=== PATIENT | female | born 1940 | race Caucasian/White ===

== ENCOUNTER 2023-06-05 01:43 | Emergency (ER) | payer OTHER, SELFPAY ==
[2023-06-05 01:53] VITALS: BP 180/79
[2023-06-05 04:08] LABS: % Basophils 0.4 % (0-2); % Eosinophils 4.6 % (0-6); % Immature Granulocytes 0.4 % (0-0.5); % Lymphocytes 25.1 % (20.5-51.1); % Monocytes 7.2 % (1.7-9.3); % Neutrophils 62.3 % (42.2-75.2); Absolute Eosinophils 0.3 10^3/uL (0-0.7); Absolute Lymphocytes 1.8 10^3/uL (1.2-3.4); Absolute Monocytes 0.5 10^3/uL (0.1-0.6); Absolute Neutrophils 4.5 10^3/uL (1.4-6.5); Hematocrit 37.6 % (37.0-47.0); Hemoglobin 12.7 g/dL (12.0-16.0); Mean Corp Hgb Conc. 33.8 g/dL (33.0-37.0); Mean Corpuscular Volume 88.9 fL (81.0-99.0); Mean Platelet Volume 10.1 fL (7.4-10.4); Nucleated Red Blood Cells % 0 %; Platelet Count 265 10^3/uL (130-400); Red Blood Cell Count 4.23 10^6/uL (4.20-5.40); Red Cell Dist. Width 13.3 % (11.5-14.5); White Blood Cell Count 7.2 10^3/uL (4.8-10.8)
[2023-06-05 04:22] LABS: ALT (SGPT) 24 U/L (0-35); AST (SGOT) 21 U/L (14-36); Alkaline Phosphatase 43 U/L (38-126); Blood Urea Nitrogen 22 mg/dl (7-17); Calcium 9.4 mg/dl (8.4-10.2); Carbon Dioxide 27 mmol/L (22-30); Chloride 103 mmol/L (98-107); Glucose 97 mg/dl (70-99); Potassium 4.5 mmol/L (3.5-5.1); Sodium 136 mmol/L (135-145); Total Bilirubin 0.7 mg/dl (0.2-1.3); Total Protein 6.6 g/dl (6.3-8.2); eGFR > 60.00
[2023-06-05 04:33] LABS: Troponin I < 0.012 ng/ml
[2023-06-05 04:54] VITALS: BMI 29.0
[2023-06-05 05:00] VITALS: BP 125/61
--- NOTE | 2023-06-05 05:39 | ED.GENMED ---
History of Present Illness
General
Chief Complaint: Blood Pressure Problem
Source: patient and family
Exam Limitations: none
Time Seen by Provider: 06/05/23 05:03
Nursing documentation reviewed up to this point in time: agreed with
Travel History
Have you had any contact with someone who has COVID-19?: No
Do you have any symptoms of coronavirus? Fever > 100 degrees, chills, cough, shortness of breath, sore throat, loss of taste or smell, muscle aches, or headache?: No
History of Present Illness
History of Present Illness:
This a pleasant 82-year-old female that presents with hypertension. She states that she was watching television tonight and felt weak. She took her blood pressure and it was 200 over palp. She does see Dr. Salazar, [facility] at [place].
She has been on metoprolol but was started on Norvasc 5 mg on Monday. She has been taking it regularly. She denies chest pain or shortness of breath. She came to the emergency department because of this weakness. Upon arrival, her blood
pressure had dropped slightly but her symptoms have improved greatly. Throughout the time in the waiting room her blood pressure returned to normal and patient stated her symptoms had resolved completely. Patient reports no chest pain at all
during her ER stay. Denies any other symptoms.
Past History
Past History
ED Past Medical History: Arrthythmia (AF) and Other (IBS)
ED Past Surgical History: Cholecystectomy, Orthopedic (Right knee surgery, Right shoulder ) and Other (hernia repair X2, cataracts, Bilateral cataracts)
Social History
Tobacco: Non-smoker
Alcohol: Occasional
Personal:
Living: with family
Phy Exam
General Physical Exam
General Presentation: well appearing and no apparent distress
General Skin: warm and dry
General Habitus: normal
General Mental: alert
General Hydration: appears well hydrated
ENT Exam
ENT Exam: EOMI, pharynx normal, neck supple and normocephalic
Eye Exam
Eye Exam: PERRL and conjunctiva normal
Cardiovascular Exam
Cardiovascular Exam: regular rate/rhythm, no edema, no murmur and normal peripheral pulses
Pulmonary Exam
Pulmonary Exam: lungs clear, no respiratory distress, no rales, no crackles, no rhonchi, no stridor, no wheezing and no cough
Gastrointestinal Exam
Gastrointestinal Exam: normal bowel sounds, non tender, soft, no organomegaly, no pulsatile mass and non distended
Neurological Exam
Neurological Exam: alert, oriented x3, no motor deficits and speech normal
Musculoskeletal Exam
Musculoskeletal Exam: full ROM and no edema
Skin Exam
Skin Exam: normal color, warm/dry, no rash and no petechia
Psychiatric Exam
Psychiatric Exam: normal mood/affect
Course
Orders/Labs/Results
Orders:
Orders
06/05/23 03:51
IV Insert/Care/Rem.- Treatment PRN
O2 Therapy [RESP] Urgent
Titrate/Wean O2 to maintain O2 sat greater than (%): 90
Special Instructions: Maintain sats >/=90%
Pulse Ox/spot Check [RESP] Urgent
Quantity: 1
Special Instructions: ON ROOM AIR
06/05/23 04:03
Complete Blood Count/With Diff Urgent
Comprehensive Metabolic Panel Urgent
Troponin I Urgent
06/05/23 05:39
Electrocardiogram (*1) Urgent
Reason for Study: Hypertension, Benign
EKG- Treatment ONCE
Abnormal Lab Results
06/05/23
04:03
BUN 22 H mg/dl
(09-19)
06/05/23 04:03
06/05/23 04:03
Vital Signs
Initial and Last Documented VS:
Initial Vital Signs
Temp Pulse Resp BP Pulse Ox
97.8 F 60 16 180/79 100
06/05/23 01:53 06/05/23 01:53 06/05/23 01:53 06/05/23 01:53 06/05/23 01:53
Last Documented Vital Signs
Temp Pulse Resp BP Pulse Ox
97.8 F 52 16 121/60 98
06/05/23 01:53 06/05/23 05:00 06/05/23 01:53 06/05/23 06:28 06/05/23 06:30
*Critical Care Note
Total Time (30-74mins, 75-104mins- exclusive of procedures): Not Applicable
Update Note
Update Note:
EKG shows sinus bradycardia rate of 50 collectibles, normal axis. No evidence of acute ischemia present. There is a normal EKG with the exception of rate. When compared with previous EKG dated February 19, 2022, current sinus bradycardia replaced
A-fib.
ED Attending Note
-
Portions of this chart may have been created with voice recognition software.� Occasional wrong word or��sound alike� substitutions may have occurred due to the inherent limitations of voice recognition software.
Discharge Plan
Departure
Patient Disposition: Home (Routine Discharge)
Date of Disposition: 06/05/23
Time of Disposition: 06:11
Patient with high blood pressure during this ER visit?: Yes
Condition: Good
Discharge Problem:
Hypertension
Instructions: High Blood Pressure (DC), BLOOD PRESSURE
Prescriptions:
No Action
flecainide 50 MG tablet
50 mg PO BID
colestipol [Colestid] 1 GM tablet
1 g PO DAILY
cholecalciferol (vitamin D3) 1,000 UNITS tablet
1,000 units PO DAILY
levothyroxine 25 mcg tablet
25 mcg PO DAILY AT 0700
Prolia 60 mg/mL Syringe
60 mg SC [id number]
Eliquis 5 mg tablet
5 mg PO BID
metoprolol succinate [Toprol XL] 25 mg tablet extended release 24 hr
75 mg PO DAILY Qty: 90 0RF
Referrals:
Smiley Segundo, DO [Family Provider] -
Interventions
Interventions:
*Risk Screen - Suicide Last Done: 06/05/23 01:53
*General Assessment Last Done: 06/05/23 01:53
*Neglect/Abuse Screening Last Done: 06/05/23 01:53
ED- Fall Risk Assessment Last Done: 06/05/23 01:53
*ED COVID-19 Vaccine History Last Done: 06/05/23 01:53
*Nursing Disposition Last Done: 06/05/23 06:56
ED- Cardiac Assessment Last Done: 06/05/23 04:54
ED- Neurological Assessment Last Done: 06/05/23 04:54
ED- Pulmonary Assessment Last Done: 06/05/23 04:54
Discharge Date and Time
Discharge Date/Time: 06/05/23 06:57
Print Language: SETSWANA
[2023-06-05 06:28] VITALS: BP 121/60
== END 2023-06-05 06:57 | disposition home or self-care (01) ==
LOC: EMR 01:43
PROVIDERS: EMERGENCY PHYSICIAN Student in an Organized Health Care Education/Training Program; FAMILY PHYSICIAN Family Medicine
DX: I10 Essential (primary) hypertension (principal)
CPT/HCPCS: 99284; 80053; 84484; 85025; 93005

== ENCOUNTER 2023-11-10 14:23 | Emergency (ER) | payer OTHER, SELFPAY ==
[2023-11-10 14:27] VITALS: BP 167/98
--- NOTE | 2023-11-10 14:49 | ED.GENMED ---
History of Present Illness
General
Chief Complaint: Skin Problem
Source: patient
Exam Limitations: none
Time Seen by Provider: 11/10/23 14:48
Nursing documentation reviewed up to this point in time: agreed with
History of Present Illness
History of Present Illness:
82-year-old female with past medical history of A-fib on Eliquis, hypothyroidism, IBD presenting emergency department with concerns of a bee sting. Patient states that yesterday she was outside when she was stung by a bee. Patient now reports
swelling around the area as well as blister formation. Patient is concerned she may have an infection. Patient denies any tongue or lip swelling, any trouble breathing. Patient denies any chest pain. Patient has been applying topical Benadryl
ointment as well as taking Benadryl capsules. She reports mild relief with this. The wound is also itchy. She is able to walk without any difficulties.
Past History
Past History
ED Past Medical History: Arrthythmia (AF) and Other (IBS)
ED Past Surgical History: Cholecystectomy, Orthopedic (Right knee surgery, Right shoulder ) and Other (hernia repair X2, cataracts, Bilateral cataracts)
Social History
Tobacco: Non-smoker
Alcohol: Occasional
Personal:
Living: with family
Review of Systems
Review of Systems
All Other Systems: ROS reviewed and negative except as documented in HPI and ROS
Phy Exam
Physical Exam
Physical Exam:
General: Patient is well appearing and in no acute distress; non-toxic
Skin: Warm and dry, there is mild erythema and warmth to top of the right foot with overlying bullae
Head: Normocephalic, atraumatic
Eyes: Sclera non-icteric. EOMs intact. PERRLA.
Cardiac: Regular rate
Peripheral Vascular: Mild soft tissue swelling overlying the right
Pulm: Normal respiratory effort
Neuro: CN II-XII intact, no focal neurologic deficits.
Psychiatric: Appropriate mood and affect.
Course
Vital Signs
Initial and Last Documented VS:
Initial Vital Signs
Temp Pulse Resp BP Pulse Ox
97.3 F 76 16 167/98 98
11/10/23 14:27 11/10/23 14:27 11/10/23 14:27 11/10/23 14:27 11/10/23 14:27
Last Documented Vital Signs
Temp Pulse Resp BP Pulse Ox
97.3 F 76 16 167/98 98
11/10/23 14:27 11/10/23 14:27 11/10/23 14:27 11/10/23 14:27 11/10/23 14:27
MDM/Problems Addressed
Differential Diagnosis Includes:
Differentials include bee sting, contact dermatitis, cellulitis, erysipelas, burn
MDM/Problems Addressed:
Bee stin-year-old female with past medical history of A-fib on Eliquis, IV is, hypothyroidism presenting to emergency department today with concerns of a bee sting. Patient reports that she tends to get exaggerated allergic reactions when she
gets bug bites or stings. Patient states that she started to have swelling swelling and redness on her foot where she got stung. Patient has applied topical Benadryl cream and taking Benadryl capsules without relief. Patient has a large bullae on
her right foot on the top. This was lanced and allowed to drain, skin overlying was kept intact and dressed for biologic dressing. I recommended patient try at home hydrocortisone cream to help with this reaction. Patient concerned about
infection. Do not suspect bacterial infection at this time however we have written his option for antibiotic for patient to take should the erythema extend up the leg and should her symptoms acutely worsen. Patient stable for discharge
Chronic conditions affecting care:
n/a
Acute Exacerbation and/or Progression of Chronic Illness:
n/a
*Critical Care Note
Total Time (30-74mins, 75-104mins- exclusive of procedures): Not Applicable
ED Attending Note
-
Portions of this chart may have been created with voice recognition software.� Occasional wrong word or��sound alike� substitutions may have occurred due to the inherent limitations of voice recognition software.
Discharge Plan
Departure
Patient Disposition: Home (Routine Discharge)
Date of Disposition: 11/10/23
Time of Disposition: 15:44
Patient with high blood pressure during this ER visit?: Yes
Condition: Good
Discharge Problem:
Bee sting, Swelling
Instructions: Insect bites and stings, Wound Care (DC), BLOOD PRESSURE
Prescriptions:
New
cephalexin 500 mg capsule
500 mg PO QID 5 Days Qty: 20 0RF
No Action
flecainide 50 MG tablet
50 mg PO BID
colestipol [Colestid] 1 GM tablet
1 g PO DAILY
cholecalciferol (vitamin D3) 1,000 UNITS tablet
1,000 units PO DAILY
levothyroxine 25 mcg tablet
25 mcg PO DAILY AT 0700
Prolia 60 mg/mL Syringe
60 mg SC [id number]
Eliquis 5 mg tablet
5 mg PO BID
metoprolol succinate [Toprol XL] 25 mg tablet extended release 24 hr
75 mg PO DAILY Qty: 90 0RF
Referrals:
Smiley Segundo, DO [Family Provider] -
Activity Restrictions/Additional Instructions:
I recommend applying a hydrocortisone cream that you can get [id number] to help with itching and to help bring down swelling. You can also can continue taking Benadryl by mouth.
We did not believe that you have a superimposed bacterial infection at this time. However, should your swelling not improve and should your erythema extend up the leg, we recommend starting the antibiotic. You can take 1 tablet 4 times daily for 5
days.
Please do not remove the skin over the blister. Please keep a Band-Aid over the area.
Please return emergency department should you develop an acute worsening recent fevers or chills, nausea or vomiting, tongue or lip swelling, hoarseness to her voice, inability to swallow, chest pain, shortness of breath, or any other signs or
symptoms concerning to you.
Interventions
Interventions:
*Risk Screen - Suicide Last Done: 11/10/23 14:33
*General Assessment Last Done: 11/10/23 14:27
*Neglect/Abuse Screening Last Done: 11/10/23 14:27
*Nursing Disposition Last Done: 11/10/23 16:01
ED-Skin Assessment Last Done: 11/10/23 16:01
Discharge Date and Time
Discharge Date/Time: 11/10/23 16:02
Print Language: SURINAMESE
== END 2023-11-10 16:02 | disposition home or self-care (01) ==
LOC: EMR 14:23
PROVIDERS: EMERGENCY PHYSICIAN Emergency Medicine; FAMILY PHYSICIAN Family Medicine
DX: T63.441A Toxic effect of venom of bees, accidental (unintentional), initial encounter (principal); M79.89 Other specified soft tissue disorders; L53.8 Other specified erythematous conditions; L29.9 Pruritus, unspecified; R03.0 Elevated blood-pressure reading, without diagnosis of hypertension; I48.91 Unspecified atrial fibrillation; E03.9 Hypothyroidism, unspecified; K58.9 Irritable bowel syndrome, unspecified; M81.0 Age-related osteoporosis without current pathological fracture; Z79.01 Long term (current) use of anticoagulants; Z90.49 Acquired absence of other specified parts of digestive tract; Z88.5 Allergy status to narcotic agent; Z88.7 Allergy status to serum and vaccine
CPT/HCPCS: 99283

== ENCOUNTER 2024-04-02 06:31 | Day surgery (SDC) | payer OTHER, SELFPAY ==
[2024-03-19 10:48] LABS: Hematocrit 40.3 % (37.0-47.0); Hemoglobin 13.4 g/dL (12.0-16.0); Mean Corp Hgb Conc. 33.3 g/dL (33.0-37.0); Mean Corpuscular Hgb 30.5 pg (27.0-31.0); Mean Corpuscular Volume 91.8 fL (81.0-99.0); Mean Platelet Volume 10.4 fL (7.4-10.4); Platelet Count 269 10^3/uL (130-400); Red Blood Cell Count 4.39 10^6/uL (4.20-5.40); Red Cell Dist. Width 12.4 % (11.5-14.5); White Blood Cell Count 5.3 10^3/uL (4.8-10.8)
[2024-03-19 11:55] LABS: Blood Urea Nitrogen 19 mg/dl (7-17); Carbon Dioxide 33 mmol/L (22-30); Chloride 98 mmol/L (98-107); Glucose 85 mg/dl (70-99); Potassium 4.4 mmol/L (3.5-5.1); Sodium 136 mmol/L (135-145); eGFR > 60.00
[2024-03-19 13:37] VITALS: BMI 26.7
[2024-04-02] VITALS (9 sets, daily range): BP systolic 101–138; BP diastolic 53–64; BMI 26.7
[2024-04-02] MEDS: NORMOSOL-R/PLASMALYTE-A 1000 IV (11:07)
[2024-04-02] MEDS: Pyridium 200 MG PO (11:07)
[2024-04-02] MEDS: HEPARIN 5000 UNITS SC (11:35)
== END 2024-04-02 18:17 | disposition home or self-care (01) ==
LOC: SDS 06:31
PROVIDERS: ATTENDING PHYSICIAN Obstetrics & Gynecology; FAMILY PHYSICIAN Family Medicine
DX: N81.2 Incomplete uterovaginal prolapse (principal); N39.3 Stress incontinence (female) (male); N36.41 Hypermobility of urethra
CPT/HCPCS: 57282; 57260; 57288; 36415; 80048; 85027; 86850; 86900; 86901; C1771